=== PATIENT | male | born 1965 | race Caucasian/White ===

== ENCOUNTER 2020-07-11 01:26 | Observation (INO) | payer BC ==
--- NOTE | 2020-07-11 01:45 | EDM.PDOC ---
ED HPI GENERAL MEDICAL PROBLEM - General Chief Complaint: Abdominal Pain Stated Complaint: UPSET STOMACHE VOMMITING CHEST PAIN Time Seen by Provider: 07/11/20 01:45 Source of Information: Reports: Patient, RN, RN Notes Reviewed History Limitations: Reports: No Limitations - History of Present Illness INITIAL COMMENTS - FREE TEXT/NARRATIVE: Patient is a 54-year-old male who presents to ER with complaint of midepigastric/chest pain and abdominal pain. States he does have a history of diverticulosis. States he had peanut M&Ms today. Patient states this evening he had hot dish and became nauseated, vomited several times, and had some loose stool. Denies sickness recently, denies fever chills. States that epigastric pain does move up into the chest, but denies shortness of breath. Onset: Today Abdominal Pain Score (Numeric/FACES): 5 - Related Data Allergies Allergy/AdvReac Type Severity Reaction Status Date / Time No Known Allergies Allergy Verified 07/11/20 01:38 Home Meds: Home Meds Ibuprofen [Advil] 600 mg PO ASDIRECTED PRN 07/11/20 [History] Past Medical History Gastrointestinal History: Reports: Diverticulosis Social & Family History - Tobacco Use Tobacco Use Status *Q: Never Tobacco User Second Hand Smoke Exposure: No - Caffeine Use Caffeine Use: Reports: None - Recreational Drug Use Recreational Drug Use: No ED ROS GENERAL - Review of Systems Review Of Systems: Comprehensive ROS is negative, except as noted in HPI. ED EXAM, GENERAL - Physical Exam Exam: See Below Course - Vital Signs Last Recorded V/S: Last Vital Signs Temp 96.7 F L 07/11/20 01:34 Pulse 60 07/11/20 01:34 Resp 22 H 07/11/20 01:34 BP 185/88 H 07/11/20 01:34 Pulse Ox 100 07/11/20 01:34 - Orders/Labs/Meds Orders: Active Orders 24 hr Category Date Time Status EKG Documentation Completion [RC] STAT Care 07/11/20 01:36 Active Sodium Chloride 0.9% [Normal Saline] 1,000 ml Med 07/11/20 03:19 Ordered IV CONTINUOUS Medication Orders Sodium Chloride (Normal Saline) 1,000 mls @ 150 mls/hr IV CONTINUOUS ONE Stop: 07/11/20 09:58 Last Admin: 02/21/21 03:26 Dose: 150 mls/hr Documented by: EDUARDO Labs: Laboratory Tests 07/11/20 07/11/20 07/11/20 Range/Units 01:35 01:35 01:35 WBC 7.4 (5.0-10.0) 10^3/uL RBC 5.43 (4.6-6.2) 10^6/uL Hgb 16.4 (14.0-18.0) g/dL Hct 46.4 (40.0-54.0) % MCV 85.5 (80-100) fL MCH 30.2 (27.0-34.0) pg MCHC 35.3 H (33.0-35.0) g/dL Plt Count 177 (150-450) 10^3/uL Neut % (Auto) 58.1 (42.2-75.2) % Lymph % (Auto) 30.1 (20.5-50.1) % [place] % (Auto) 8.8 H (2-8) % Eos % (Auto) 2.7 (1.0-3.0) % Baso % (Auto) 0.3 (0.0-1.0) % Sodium 140 (136-145) mmol/L Potassium 3.3 L (3.5-5.1) mmol/L Chloride 101 (98-107) mmol/L Carbon Dioxide 28 (21-32) mmol/L Anion Gap 14.3 H (7-13) mEq/L BUN 10 (7-18) mg/dL Creatinine 0.86 (0.70-1.30) mg/dL Est Cr Clr Drug Dosing 97.21 mL/min Estimated GFR (MDRD) > 60 BUN/Creatinine Ratio 11.6 (No establ ref range) Glucose 217 H (74-99) mg/dL Calcium 9.0 (8.5-10.1) mg/dL Magnesium 2.0 (1.8-2.4) mg/dL Total Bilirubin 0.8 (0.2-1.0) mg/dL AST 16 (15-37) U/L ALT 39 (16-63) U/L Alkaline Phosphatase 66 (46-116) U/L Troponin I < 0.017 (0.000-0.056) ng/mL Total Protein 7.6 (6.4-8.2) g/dL Albumin 4.0 (3.4-5.0) g/dL Globulin 3.6 Albumin/Globulin Ratio 1.1 Meds: Medications Generic Name Dose Route Start Last Admin Trade Name Katia PRN Reason Stop Dose Admin Sodium Chloride 1,000 mls @ 150 mls/hr 07/11/20 03:19 07/11/20 03:26 Normal Saline IV 07/11/20 09:58 150 mls/hr CONTINUOUS ONE Administration Discontinued Medications Generic Name Dose Route Start Last Admin Trade Name Katia PRN Reason Stop Dose Admin Fentanyl 50 mcg 07/11/20 02:50 07/11/20 02:55 Sublimaze IVPUSH 07/11/20 02:51 50 mcg ONETIME ONE Administration Iopamidol 100 ml 07/11/20 02:22 07/11/20 02:28 Isovue-300 (61%) IVPUSH 07/11/20 02:23 100 ml ONETIME ONE Administration Ondansetron HCl 4 mg 07/11/20 02:26 07/11/20 02:35 Zofran IV 07/11/20 02:27 4 mg ONETIME ONE Administration Ondansetron HCl Confirm 07/11/20 02:27 07/11/20 02:35 Zofran Administered 07/11/20 02:28 Not Given Dose 4 mg .ROUTE .App Partner ONE - Radiology Interpretation Free Text/Narrative:: CT Abdomen/Pelvis with contrast: PROCEDURE INFORMATION: Exam: CT Abdomen And Pelvis With Contrast Exam date and time: 07/11/2020 2:41 AM Age: 54 years old Clinical indication: Vomiting and other: Pain; Additional info: Abdominal pain, HX diverticulosis TECHNIQUE: Imaging protocol: Computed tomography of the abdomen and pelvis with contrast. Radiation optimization: All CT scans at this facility use at least one of these dose optimization techniques: automated exposure control; mA and/or kV adjustment per patient size (includes targeted exams where dose is matched to clinical indication); or iterative reconstruction. Contrast material: [id number]; Contrast volume: 100 ml; Contrast route: INTRAVENOUS (IV); COMPARISON: CT Abdomen Pelvis w Cont 07/18/2018 6:51 AM FINDINGS: Liver: There is hypoattenuation of the hepatic parenchyma compatible with fatty infiltration. Gallbladder and bile ducts: Normal. No calcified stones. No ductal dilation. Pancreas: Normal. No ductal dilation. Spleen: Normal. No splenomegaly. Adrenal glands: Normal. No mass. Kidneys and ureters: There is a 12 mm hypoattenuation cystic lesions seen in the upper pole of the left kidney compatible with a simple cyst. Stomach and bowel: The gastric fundus is fluid-filled, remainder of the stomach is decompressed. Diverticula are seen on the descending and sigmoid colon. There are no inflammatory changes present to suggest diverticulitis. There are nondilated loops of small bowel containing fluid and some air-fluid levels, findings could represent mild ileus. Appendix: The appendix is visualized and is normal in configuration. Intraperitoneal space: Unremarkable. No free air. No significant fluid collection. Vasculature: Unremarkable. No abdominal aortic aneurysm. Lymph nodes: Unremarkable. No enlarged lymph nodes. Urinary bladder: Unremarkable as visualized. Reproductive: Unremarkable as visualized. Bones/joints: Unremarkable. No acute fracture. Soft tissues: Unremarkable. IMPRESSION: 1. Fatty infiltration of the liver 2. Nondilated loops of small bowel containing fluid and some air-fluid levels may represent ileus. 3. The gastric fundus is fluid-filled, the remainder of the stomach is decompressed. 4. Normal appendix 5. Diverticulosis of the descending and sigmoid colon 6. There is no evidence for ureteral obstruction 7. Tiny benign left renal cyst measuring 12 mm. No further workup needed. COMMENTS: Consistent with the [employer]'s Incidental Findings Committee white paper (J Am Ramses Radiol 2018): Any incidental renal lesion less than 1 cm or classified as too small to characterize, or any incidental cystic renal lesion characterized as simple- appearing, is likely benign. No follow-up imaging is recommended for these lesions per consensus recommendations based on imaging criteria. Thank you for allowing us to participate in the care of your patient. Dictated and Authenticated by: Derek Trujillo MD 07/11/2020 3:13 AM Central Time ([place] & [place]) See rad report - Re-Assessments/Exams Free Text/Narrative Re-Assessment/Exam: 07/11/20 03:49 Patient case discussed with Dr. Lora who agreed to accept the patient for observation admission. Departure - Departure Time of Disposition: 03:48 Disposition: Refer to Observation Reason for Transfer *Q: Other Condition: Fair Clinical Impression: Ileus, Diverticulosis Vomiting Qualifiers: Vomiting type: unspecified Vomiting Intractability: non-intractable Nausea presence: with nausea Qualified Code(s): R11.2 - Nausea with vomiting, unspecified Forms: ED Department Discharge Sepsis Event Note (ED) - Evaluation Sepsis Screening Result: Possible Sepsis Risk - Focused Exam Vital Signs: Vital Signs Temp Pulse Resp BP Pulse Ox 07/11/20 01:34 96.7 F L 60 22 H 185/88 H 100 - My Orders Last 24 Hours: My Active Orders 07/11/20 01:36 EKG Documentation Completion [RC] STAT 07/11/20 03:19 Sodium Chloride 0.9% [Normal Saline] 1,000 ml IV CONTINUOUS - Assessment/Plan Last 24 Hours: My Active Orders 07/11/20 01:36 EKG Documentation Completion [RC] STAT 07/11/20 03:19 Sodium Chloride 0.9% [Normal Saline] 1,000 ml IV CONTINUOUS
[2020-07-11 02:03] LABS: ANION GAP 14.3 mEq/L (7-13); CHLORIDE,CL 101 mmol/L (98-107); SODIUM,NA 140 mmol/L (136-145)
[2020-07-11] MEDS ORDERED: Iopamidol 612 MG/ML 100 ML Bottle IVPUSH ONE (02:22)
[2020-07-11] MEDS ORDERED: Ondansetron 4 MG/2 ML SDV IV ONE (02:26)
[2020-07-11] MEDS ORDERED: Ondansetron 4 MG/2 ML SDV ONE (02:27)
[2020-07-11] MEDS ORDERED: fentaNYL 100 MCG/2 ML SDV IVPUSH ONE (02:50)
--- NOTE | 2020-07-11 03:13 | CT ---
PROCEDURE INFORMATION: Exam: CT Abdomen And Pelvis With Contrast Exam date and time: 07/11/2020 2:41 AM Age: 54 years old Clinical indication: Vomiting and other: Pain; Additional info: Abdominal pain, HX diverticulosis TECHNIQUE: Imaging protocol: Computed tomography of the abdomen and pelvis with contrast. Radiation optimization: All CT scans at this facility use at least one of these dose optimization techniques: automated exposure control; mA and/or kV adjustment per patient size (includes targeted exams where dose is matched to clinical indication); or iterative reconstruction. Contrast material: [id number]; Contrast volume: 100 ml; Contrast route: INTRAVENOUS (IV); COMPARISON: CT Abdomen Pelvis w Cont 07/18/2018 6:51 AM FINDINGS: Liver: There is hypoattenuation of the hepatic parenchyma compatible with fatty infiltration. Gallbladder and bile ducts: Normal. No calcified stones. No ductal dilation. Pancreas: Normal. No ductal dilation. Spleen: Normal. No splenomegaly. Adrenal glands: Normal. No mass. Kidneys and ureters: There is a 12 mm hypoattenuation cystic lesions seen in the upper pole of the left kidney compatible with a simple cyst. Stomach and bowel: The gastric fundus is fluid-filled, remainder of the stomach is decompressed. Diverticula are seen on the descending and sigmoid colon. There are no inflammatory changes present to suggest diverticulitis. There are nondilated loops of small bowel containing fluid and some air-fluid levels, findings could represent mild ileus. Appendix: The appendix is visualized and is normal in configuration. Intraperitoneal space: Unremarkable. No free air. No significant fluid collection. Vasculature: Unremarkable. No abdominal aortic aneurysm. Lymph nodes: Unremarkable. No enlarged lymph nodes. Urinary bladder: Unremarkable as visualized. Reproductive: Unremarkable as visualized. Bones/joints: Unremarkable. No acute fracture. Soft tissues: Unremarkable. IMPRESSION: 1. Fatty infiltration of the liver 2. Nondilated loops of small bowel containing fluid and some air-fluid levels may represent ileus. 3. The gastric fundus is fluid-filled, the remainder of the stomach is decompressed. 4. Normal appendix 5. Diverticulosis of the descending and sigmoid colon 6. There is no evidence for ureteral obstruction 7. Tiny benign left renal cyst measuring 12 mm. No further workup needed. COMMENTS: Consistent with the [employer]'s Incidental Findings Committee white paper (J Am Ramses Radiol 2018): Any incidental renal lesion less than 1 cm or classified as too small to characterize, or any incidental cystic renal lesion characterized as simple-appearing, is likely benign. No follow-up imaging is recommended for these lesions per consensus recommendations based on imaging criteria.
[2020-07-11] MEDS ORDERED: Sodium Chloride 0.9% 1,000 ML IV ONE (03:19)
[2020-07-11] MEDS ORDERED: Acetaminophen 325 MG Tab PO PRN (04:05)
[2020-07-11] MEDS ORDERED: Ondansetron 4 MG/2 ML SDV IVPUSH PRN (04:05)
--- NOTE | 2020-07-11 04:12 | PCM.HP ---
H&P History of Present Illness - General Date of Service: 07/11/20 Admit Problem/Dx: Admission Diagnosis/Problem Admission Diagnosis/Problem Ileus Source of Information: Patient History Limitations: Reports: No Limitations - History of Present Illness Initial Comments - Free Text/Narative: Rafa is 55-year-old male with past medical history significant for hypertension, diverticulosis who presented to the ED for evaluation of abdominal pain, nausea, vomiting onset yesterday in the evening. Patient reports abdominal pain started after he ate a hot vegetable male. Started with abdominal upset, nausea and several episodes of emesis. Vomitus clear with no blood. Abdominal pain was generalized and more concentrated in the epigastric area in the upper chest area. It was sharp, 10 out of 10, radiating to the upper chest, with no relieving or aggravating factors. Associated with nausea vomiting. He also notes abdominal bloating. He endorses flatulence and had a small amount of bowel movement yesterday. He denies fever, chills. He has no shortness of breath, cough. No recent travel or ill contact. In the ED he was hypertensive. Labs significant for potassium 3.3, serum glucose 217. CT abdomen pelvis findings consistent with ileus. He received 50 mcg of IV fentanyl with minimal improvement in abdominal pain. Admission was requested for further management. Okay Improves with: Reports: None Worsens with: Reports: None Associated Symptoms: Reports: No Other Symptoms Abdominal Pain Score (Numeric/FACES): 5 - Related Data Allergies/Adverse Reactions: Allergies Allergy/AdvReac Type Severity Reaction Status Date / Time No Known Allergies Allergy Verified 07/11/20 01:38 Home Medications: Home Meds Ibuprofen [Advil] 600 mg PO ASDIRECTED PRN 07/11/20 [History] Past Medical History Gastrointestinal History: Reports: Diverticulosis Social & Family History - Tobacco Use Tobacco Use Status *Q: Never Tobacco User Second Hand Smoke Exposure: No - Caffeine Use Caffeine Use: Reports: None - Recreational Drug Use Recreational Drug Use: No H&P Review of Systems - Review of Systems: Review Of Systems: See Below (As per HPI) General: Reports: Decreased Appetite HEENT: Reports: No Symptoms Pulmonary: Reports: No Symptoms Cardiovascular: Reports: Chest Pain Gastrointestinal: Reports: Abdominal Pain, Decreased Appetite, Nausea, Vomiting Genitourinary: Reports: No Symptoms Musculoskeletal: Reports: No Symptoms Skin: Reports: No Symptoms Psychiatric: Reports: No Symptoms Neurological: Reports: No Symptoms Hematologic/Lymphatic: Reports: No Symptoms Immunologic: Reports: No Symptoms Exam - Exam Exam: See Below - Vital Signs Vital Signs: Last Vital Signs Temp 96.7 F L 07/11/20 01:34 Pulse 60 07/11/20 01:34 Resp 22 H 07/11/20 01:34 BP 185/88 H 07/11/20 01:34 Pulse Ox 100 07/11/20 01:34 Weight: 223 lb - Exam General: Alert, Oriented, 4 HEENT: PERRLA, Hearing Intact, Mucosa Moist & [place], Nares Patent, Normal Nasal Septum, Posterior Pharynx Clear, Conjunctiva Clear, EOMI, EACs Clear, TMs Clear Neck: Supple, Trachea Midline, 2 Lungs: Clear to Auscultation, Normal Respiratory Effort Cardiovascular: Regular Rate, Regular Rhythm GI/Abdominal Exam: Normal Bowel Sounds, Soft, Non-Tender, No Organomegaly, No Distention, No Abnormal Bruit, No Mass, Pelvis Stable (Male) Exam: No Hernia, Normal Inspection, Normal Prostate, Circumcised Rectal (Males) Exam: Normal Exam, Normal Rectal Tone, Prostate Normal Back Exam: Normal Inspection, Full Range of Motion, NT Extremities: Normal Inspection, Normal Range of Motion, Non-Tender, No Pedal Edema, Normal Capillary Refill Skin: Warm, Dry, Intact Neurological: Cranial Nerves Intact, Reflexes Equal Bilateral Neuro Extensive - Mental Status: Alert, Oriented x3, Normal Mood/Affect, Normal Cognition Neuro Extensive - Motor, Sensory, Reflexes: CN II-XII Intact, Normal Gait, Normal Reflexes Psychiatric: Alert, Normal Affect, Normal Mood - Patient Data Lab Results Last 24 hrs: Laboratory Results - last 24 hr 07/11/20 07/11/20 07/11/20 Range/Units 01:35 01:35 01:35 WBC 7.4 (5.0-10.0) 10^3/uL RBC 5.43 (4.6-6.2) 10^6/uL Hgb 16.4 (14.0-18.0) g/dL Hct 46.4 (40.0-54.0) % MCV 85.5 (80-100) fL MCH 30.2 (27.0-34.0) pg MCHC 35.3 H (33.0-35.0) g/dL Plt Count 177 (150-450) 10^3/uL Neut % (Auto) 58.1 (42.2-75.2) % Lymph % (Auto) 30.1 (20.5-50.1) % [place] % (Auto) 8.8 H (2-8) % Eos % (Auto) 2.7 (1.0-3.0) % Baso % (Auto) 0.3 (0.0-1.0) % Sodium 140 (136-145) mmol/L Potassium 3.3 L (3.5-5.1) mmol/L Chloride 101 (98-107) mmol/L Carbon Dioxide 28 (21-32) mmol/L Anion Gap 14.3 H (7-13) mEq/L BUN 10 (7-18) mg/dL Creatinine 0.86 (0.70-1.30) mg/dL Est Cr Clr Drug Dosing 97.21 mL/min Estimated GFR (MDRD) > 60 BUN/Creatinine Ratio 11.6 (No establ ref range) Glucose 217 H (74-99) mg/dL Calcium 9.0 (8.5-10.1) mg/dL Magnesium 2.0 (1.8-2.4) mg/dL Total Bilirubin 0.8 (0.2-1.0) mg/dL AST 16 (15-37) U/L ALT 39 (16-63) U/L Alkaline Phosphatase 66 (46-116) U/L Troponin I < 0.017 (0.000-0.056) ng/mL Total Protein 7.6 (6.4-8.2) g/dL Albumin 4.0 (3.4-5.0) g/dL Globulin 3.6 Albumin/Globulin Ratio 1.1 Result Diagrams: 07/11/20 01:35 07/11/20 01:35 - Problem List (1) Hypokalemia SNOMED Code(s): 77087180 ICD Code: E87.6 - HYPOKALEMIA Status: Acute Current Visit: Yes (2) Hyperglycemia SNOMED Code(s): 34072974 ICD Code: R73.9 - HYPERGLYCEMIA, UNSPECIFIED Status: Acute Current Visit: Yes (3) Obesity SNOMED Code(s): 477204768, 570053788 ICD Code: E66.9 - OBESITY, UNSPECIFIED Status: Acute Current Visit: Yes Problem List Initiated/Reviewed/Updated: Yes Orders Last 24hrs: Active Orders 24 hr Category Date Time Status Admission Diagnosis [ADT] Stat ADT 07/11/20 03:49 Ordered Admission Status [Patient Status] [ADT] Routine ADT 07/11/20 03:49 Active Ambulate [RC] ASDIRECTED Care 07/11/20 04:05 Ordered Intake and Output [RC] QSHIFT Care 07/11/20 04:06 Ordered Notify Provider Vital Signs [RC] ASDIRECTED Care 07/11/20 04:07 Ordered Oxygen Therapy [RC] PRN Care 07/11/20 04:05 Ordered VTE/DVT Education [RC] PER UNIT ROUTINE Care 07/11/20 04:05 Ordered Vital Signs [RC] Q4H Care 07/11/20 04:05 Ordered Nothing per Oral Now Diet [DIET] Diet 07/11/20 Breakfast Ordered CORONAVIRUS COVID-19 RAPID [MOLEC] Stat Lab 07/11/20 03:55 Received MAGNESIUM [CHEM] Routine Lab 07/11/20 04:05 Ordered PHOSPHORUS [CHEM] Routine Lab 07/11/20 04:05 Ordered POTASSIUM,K [CHEM] Routine Lab 07/11/20 12:00 Ordered Acetaminophen [TylenoL] Med 07/11/20 04:05 Ordered 650 mg PO Q4H PRN Heparin Sodium Med 07/11/20 09:00 Ordered 5,000 units SUBCUT Q12HR Lactated Ringers @ 125 MLS/HR(1000ml) Med 07/11/20 04:15 Ordered Lactated Ringers [Ringers, Lactated] 1,000 ml IV ASDIRECTED Ondansetron [Zofran] Med 07/11/20 04:05 Ordered 4 mg IVPUSH Q6H PRN Sodium Chloride 0.9% [Normal Saline] 1,000 ml Med 07/11/20 03:19 Active IV CONTINUOUS Resuscitation Status Routine Resus Stat 07/11/20 04:05 Ordered Medication Orders Acetaminophen (Tylenol) 650 mg PO Q4H PRN PRN Reason: Pain (Mild 1-3)/fever Heparin Sodium (Porcine) (Heparin Sodium) 5,000 units SUBCUT Q12HR NORRIS Sodium Chloride (Normal Saline) 1,000 mls @ 150 mls/hr IV CONTINUOUS ONE Stop: 07/11/20 09:58 Last Admin: 07/11/20 03:26 Dose: 150 mls/hr Documented by: EDUARDO Lactated Ringer's (Ringers, Lactated) 1,000 mls @ 125 mls/hr IV ASDIRECTED NORRIS Ondansetron HCl (Zofran) 4 mg IVPUSH Q6H PRN PRN Reason: Nausea/Vomiting Assessment/Plan Comment:: #Abdominal bloating, nausea, vomiting with epigastric pain CT abdomen pelvis findings consistent with ileus Differentials include but not limited ileus, indigestion, acute gastritis Admit to medical floor IV fluid with LR @ 125 cc/h IV pantoprazole 40 mg twice daily Maalox as needed Keep n.p.o. Serial abdominal exams #Hypokalemia Replace per protocol #Hypertension. Systolic BP on admit > 200 Patient not on any home medication Patient could be contributing to this Cyst Norvasc 5 mg daily Ensure adequate pain control with fentanyl Hydralazine 20 mg IV push once then 10 mg IV every 6 hours for systolic > 160 Monitor BP closely #Hyperglycemia Serum glucose on admission 217 A1c SSI Accu-Cheks Hypoglycemia protocol #Obesity Counseled provided
[2020-07-11] MEDS: fentaNYL 100 MCG/2 ML SDV IVPUSH PRN ×2 (04:40→07:59)
[2020-07-11] MEDS ORDERED: Potassium Chloride 10 MEQ in Premix Bag 4 BAG IV ONE (04:40)
[2020-07-11] MEDS: Lactated Ringers 1,000 ML IV SCH ×3 (04:42→21:37)
[2020-07-11] MEDS ORDERED: hydrALAZINE 20 MG/ML SDV IVPUSH PRN (04:42)
[2020-07-11] MEDS ORDERED: hydrALAZINE 20 MG/ML SDV IVPUSH STA (04:43)
[2020-07-11] MEDS: Potassium Chloride 10 MEQ in Premix Bag 1 BAG IV SCH ×4 (04:58→10:11)
[2020-07-11] MEDS: Heparin Sodium 5,000 Units/ML Vial SUBCUT SCH ×2 (08:00→21:03)
[2020-07-11] MEDS: Pantoprazole 40 MG Vial IVPUSH SCH ×2 (10:13→21:03)
[2020-07-11] MEDS: Aluminum Hydroxide/Magnesium Hydroxide/Simethicone Susp 30 ML Cup PO SCH ×2 (10:13→17:10)
[2020-07-11] MEDS: amLODIPine 5 MG Tab PO SCH (10:20)
[2020-07-12] MEDS: Aluminum Hydroxide/Magnesium Hydroxide/Simethicone Susp 30 ML Cup PO SCH ×3 (01:37→10:29)
[2020-07-12] MEDS: Lactated Ringers 1,000 ML IV SCH (05:41)
[2020-07-12] MEDS: amLODIPine 5 MG Tab PO SCH (08:25)
[2020-07-12] MEDS: Heparin Sodium 5,000 Units/ML Vial SUBCUT SCH (08:27)
--- NOTE | 2020-07-12 09:37 | PCM.DCSUM1 ---
Discharge Summary - Hospital Course Free Text/Narrative:: Rafa is 55-year-old male with past medical history significant for hypertension, diverticulosis who presented to the ED for evaluation of abdominal pain, nausea, vomiting onset yesterday in the evening. Patient reports abdominal pain started after he ate a hot vegetable male. He was admitted for ileus. Labs significant for potassium 3.3, serum glucose 217. CT abdomen pelvis findings consistent with ileus. Patient was managed with bowel rest, IV fluids and electrolyte replacement. His symptoms resolved. He was also hypotensive and received IV hydralazine. Serum glucose was elevated on admission. Glucose improved with insulin. Nausea vomiting improved. Bowel function returned. Patient had bowel movement. He was discharged in stable condition with plan to follow-up with PCP. She was started on amlodipine for hypertension. Diagnosis: Stroke: No - Discharge Data Discharge Date: 07/12/20 Discharge Disposition: Home, Self-Care 01 Condition: Good - Referral to Home Health Primary Care Physician: PCP Unobtainable - Discharge Diagnosis/Problem(s) (1) Hypokalemia SNOMED Code(s): 63401126 ICD Code: E87.6 - HYPOKALEMIA Status: Acute Current Visit: Yes (2) Hyperglycemia SNOMED Code(s): 63601703 ICD Code: R73.9 - HYPERGLYCEMIA, UNSPECIFIED Status: Acute Current Visit: Yes (3) Obesity SNOMED Code(s): 566839547, 243608452 ICD Code: E66.9 - OBESITY, UNSPECIFIED Status: Acute Current Visit: Yes - Patient Instructions Diet: Diabetic Diet Activity: As Tolerated Driving: May Drive Today Showering/Bathing: May Shower Notify Provider of: Fever, Increased Pain, Nausea and/or Vomiting - Discharge Plan *PRESCRIPTION DRUG MONITORING PROGRAM REVIEWED*: Not Applicable *COPY OF PRESCRIPTION DRUG MONITORING REPORT IN PATIENT SANTY: Not Applicable Prescriptions/Med Rec: Alum Hydrox/Mag Hydrox/Simeth [Mag-Al Plus] 30 ml PO Q8H #1 cup amLODIPine [Norvasc] 5 mg PO DAILY 1 Days #30 tablet Pantoprazole [ProTONIX] 40 mg PO DAILY #30 tab.cr Tobacco Cessation Medication: Prescription Refused Home Medications: Home Meds Alum Hydrox/Mag Hydrox/Simeth [Mag-Al Plus] 30 ml PO Q8H #1 cup 07/12/20 [Rx] Pantoprazole [ProTONIX] 40 mg PO DAILY #30 tab.cr 07/12/20 [Rx] amLODIPine [Norvasc] 5 mg PO DAILY 1 Days #30 tablet 07/12/20 [Rx] Forms: ED Department Discharge Referrals: PCP,Unobtain [Primary Care Provider] - - Discharge Summary/Plan Comment DC Time >30 min.: Yes - General Info Date of Service: 07/12/20 Admission Dx/Problem (Free Text: Admission Diagnosis/Problem Admission Diagnosis/Problem Ileus Functional Status: Reports: Pain Controlled - Review of Systems General: Reports: No Symptoms HEENT: Reports: No Symptoms Pulmonary: Reports: No Symptoms Cardiovascular: Reports: No Symptoms Gastrointestinal: Reports: No Symptoms Genitourinary: Reports: No Symptoms Musculoskeletal: Reports: No Symptoms Skin: Reports: No Symptoms Neurological: Reports: No Symptoms Psychiatric: Reports: No Symptoms - Patient Data Vitals - Most Recent: Last Vital Signs Temp 98.3 F 07/12/20 08:29 Pulse 72 07/12/20 08:29 Resp 18 07/12/20 08:29 BP 153/84 H 07/12/20 08:29 Pulse Ox 94 L 07/12/20 08:29 Weight - Most Recent: 219 lb 12.8 oz I&O - Last 24 hours: Intake & Output 07/11/20 07/12/20 07/12/20 22:59 06:59 14:59 Intake Total 2512 1250 Balance 2512 1250 Lab Results - Last 24 hrs: Laboratory Results - last 24 hr 07/11/20 Range/Units 12:46 Potassium 3.7 (3.5-5.1) mmol/L Troponin I < 0.017 (0.000-0.056) ng/mL Med Orders - Current: Current Medications Acetaminophen (Tylenol) 650 mg PO Q4H PRN PRN Reason: Pain (Mild 1-3)/fever Al Hydroxide/Mg Hydroxide (Mag-Al Plus) 30 ml PO Q8H ONRRIS Last Admin: 07/12/20 08:25 Dose: 30 ml Documented by: Amlodipine Besylate (Norvasc) 5 mg PO DAILY NORRIS Last Admin: 07/12/20 08:25 Dose: 5 mg Documented by: Fentanyl (Sublimaze) 25 mcg IVPUSH Q2H PRN PRN Reason: Pain (severe 7-10) Last Admin: 07/11/20 07:59 Dose: 25 mcg Documented by: Heparin Sodium (Porcine) (Heparin Sodium) 5,000 units SUBCUT Q12HR [facility] Last Admin: 07/12/20 08:27 Dose: Not Given Documented by: Hydralazine HCl (Apresoline) 10 mg IVPUSH Q6H PRN PRN Reason: Hypertension Lactated Ringer's (Ringers, Lactated) 1,000 mls @ 125 mls/hr IV ASDIRECTED [facility] Last Admin: 07/12/20 05:41 Dose: 125 mls/hr Documented by: Influenza Virus Vaccine (Pharmacy To Dose - Influenza Vaccine) 1 each IM DAILY [facility] Ondansetron HCl (Zofran) 4 mg IVPUSH Q6H PRN PRN Reason: Nausea/Vomiting Pantoprazole Sodium (Protonix Iv) 40 mg IVPUSH BEDTIME [facility] Last Admin: 07/11/20 21:03 Dose: 40 mg Documented by: Discontinued Medications Fentanyl (Sublimaze) 50 mcg IVPUSH ONETIME ONE Stop: 07/11/20 02:51 Last Admin: 07/11/20 02:55 Dose: 50 mcg Documented by: Hydralazine HCl (Apresoline) 20 mg IVPUSH ONETIME STA Stop: 07/11/20 04:44 Last Admin: 07/11/20 04:58 Dose: 20 mg Documented by: Sodium Chloride (Normal Saline) 1,000 mls @ 150 mls/hr IV CONTINUOUS ONE Stop: 07/11/20 09:58 Last Admin: 07/11/20 03:26 Dose: 150 mls/hr Documented by: Potassium Chloride 10 meq/ (Premix) 100 mls @ 100 mls/hr IV Q1H [facility] Stop: 07/11/20 08:59 Last Infusion: 07/11/20 11:57 Dose: Infused Documented by: Iopamidol (Isovue-300 (61%)) 100 ml IVPUSH ONETIME ONE Stop: 07/11/20 02:23 Last Admin: 07/11/20 02:28 Dose: 100 ml Documented by: Ondansetron HCl (Zofran) 4 mg IV ONETIME ONE Stop: 07/11/20 02:27 Last Admin: 07/11/20 02:35 Dose: 4 mg Documented by: Ondansetron HCl (Zofran) Confirm Administered Dose 4 mg .ROUTE .STK-MED ONE Stop: 07/11/20 02:28 Last Admin: 07/11/20 02:35 Dose: Not Given Documented by: - Exam General: Reports: Alert, Oriented HEENT: Reports: Pupils Equal, Pupils Reactive, EOMI, Mucous Membr. Moist/[place] Neck: Reports: Supple Lungs: Reports: Clear to Auscultation, Normal Respiratory Effort Cardiovascular: Reports: Regular Rate, Regular Rhythm GI/Abdominal Exam: Normal Bowel Sounds, Soft, Non-Tender, No Organomegaly, No Distention, No Abnormal Bruit, No Mass, Pelvis Stable (Male) Exam: No Hernia, Normal Inspection, Normal Prostate, Circumcised Rectal (Males) Exam: Normal Exam, Normal Rectal Tone, Prostate Normal Back Exam: Reports: Normal Inspection, Full Range of Motion Extremities: Normal Inspection, Normal Range of Motion, Non-Tender, No Pedal Edema, Normal Capillary Refill Skin: Reports: Warm, Dry, Intact Wound/Incisions: Reports: Healing Well Neurological: Reports: No New Focal Deficit Psy/Mental Status: Reports: Alert, Normal Affect, Normal Mood
[2020-07-12 10:28] LABS: ANION GAP 13.5 mEq/L (7-13); CHLORIDE,CL 100 mmol/L (98-107); SODIUM,NA 138 mmol/L (136-145)
[2020-07-12] MEDS ORDERED: FLU Vacc QS2020-21 36MOS UP/PF 60 MCG/0.5 ML Syringe IM ONE (10:30)
== END 2020-07-12 11:15 | disposition home or self-care (01) ==
LOC: DL.ED 01:26 → DL.MS 03:49
PROVIDERS: ADMIT Student in an Organized Health Care Education/Training Program; ATTEND Student in an Organized Health Care Education/Training Program
DX: R10.13 Epigastric pain (principal); R11.2 Nausea with vomiting, unspecified; K57.30 Diverticulosis of large intestine without perforation or abscess without bleeding; N28.1 Cyst of kidney, acquired; K76.0 Fatty (change of) liver, not elsewhere classified; I10 Essential (primary) hypertension; Z20.822 Contact with and (suspected) exposure to COVID-19; E87.6 Hypokalemia; R73.9 Hyperglycemia, unspecified; E66.9 Obesity, unspecified; Z68.33 Body mass index [BMI] 33.0-33.9, adult; Z79.899 Other long term (current) drug therapy
CPT/HCPCS: 36415; 74177; 80048; 80053; 83735; 84100; 84132; 84484; 85025; 87635; 90471; 90686; 93005; A9270; C9113; J0360; J1644; J2405; J3010; J3480; J7030; J7120; Q9967; 99284; G0008; U0002